=== PATIENT | female | born 1995 | race Caucasian/White ===

== ENCOUNTER 2017-04-02 23:00 | Emergency (ER) | payer OTHER ==
[~2017-04-02 23:00] MED LIST: AMOXICILLIN PO; AMOXIL500 MG PO; BACTRIM DS TABL1 TA1 PO; BACTRIM DS TABL1 TA2 PO; CLARITIN10 M2 PO; MEDROL4 MG/DOSE- PO; NO MEDICATIONS; PHENERGAN25 MG PO; PREDNISONE PO; PYRIDIUM PO; TYLENOL/CO12 MG/5 ML PO; VOLTAREN75 MG PO; ZOFRAN ODT4 MG SL; ZOFRANODT PO; ZOLOFT50 MG PO
[2017-04-02 23:55] LABS: URINE SOURCE CLEAN CATCH
[2017-04-02 23:57] LABS: MICRO INDICATED? YES; URINE APPEARANCE CLOUDY; URINE BILIRUBIN NEG (NEG); URINE BLOOD TRACE-LYSED (NEG); URINE COLOR YELLOW; URINE GLUCOSE NEG (NORM); URINE KETONE NEG (NEG); URINE LEUKOCYTE ESTERASE 2+ (NEG); URINE NITRATE NEG (NEG); URINE PROTEIN TRACE (NEG); URINE UROBILINOGEN 0.2 MG/DL (NORM)
[2017-04-03] LABS: CULTURE INDICATED? YES; URINE BACTERIA 1+ (NEG); URINE MUCUS PRESENT; URINE SQUAMOUS EPITHELIAL CELL MODERATE /[HPF]; URINE TRANSITIONAL EPI CELLS FEW /[HPF]; URINE WBC 50-100 /[HPF] (0-5)
[2017-04-05 02:22] LABS: CHLAMYDIA TRACH Not Detected (Not Detected); N GONOR Not Detected (Not Detected)
== END 2017-04-03 01:33 | disposition home or self-care (01) ==
LOC: SED 23:00
PROVIDERS: Nurse Practitioner
DX: B37.3 Candidiasis of vulva and vagina (principal); F41.9 Anxiety disorder, unspecified; F32.9 Major depressive disorder, single episode, unspecified
CPT/HCPCS: 81003; 84703; 87086; 87088; 87186; 87210; 87491; 87591; 87808; 87905; 99284